=== PATIENT | male | born 1960 | race African-American/Black ===

== ENCOUNTER 2021-01-01 01:36 | Emergency (ER) | payer OTHER ==
[~2021-01-01] VITALS: Ht 185.4 cm; Wt 113.6 kg
[2021-01-01] MEDS ORDERED: CLON0.2T PO (02:00)
[2021-01-01] MEDS ORDERED: PERMETHRIN 5% 60 GM CREAM TP ONE (08:15)
[2021-01-01 08:24] VITALS: BP 135/79
== END 2021-01-01 08:39 | disposition home or self-care (01) ==
LOC: EMS 01:39
DX: S40.861A Insect bite (nonvenomous) of right upper arm, initial encounter (principal); S40.862A Insect bite (nonvenomous) of left upper arm, initial encounter; S80.862A Insect bite (nonvenomous), left lower leg, initial encounter; S80.861A Insect bite (nonvenomous), right lower leg, initial encounter; L89.309 Pressure ulcer of unspecified buttock, unspecified stage; I10 Essential (primary) hypertension; F17.210 Nicotine dependence, cigarettes, uncomplicated; W57.XXXA Bitten or stung by nonvenomous insect and other nonvenomous arthropods, initial encounter; Y93.89 Activity, other specified; Y92.89 Other specified places as the place of occurrence of the external cause; Y99.8 Other external cause status
CPT/HCPCS: 99282; Z7502; Z7610

== ENCOUNTER 2021-07-10 04:14 | Emergency (ER) | payer OTHER ==
[~2021-07-10] VITALS: Ht 185.4 cm; Wt 100.0 kg
[~2021-07-10 04:14] MED LIST: CLON0.2T PO
[2021-07-10 04:20] VITALS: BP 147/89
== END 2021-07-10 05:52 | disposition home or self-care (01) ==
LOC: EMS 04:16
DX: T14.8XXA Other injury of unspecified body region, initial encounter (principal); W57.XXXA Bitten or stung by nonvenomous insect and other nonvenomous arthropods, initial encounter; Y93.89 Activity, other specified; Y92.89 Other specified places as the place of occurrence of the external cause; Y99.8 Other external cause status
CPT/HCPCS: 99281; Z7502